=== PATIENT | female | born 1975 | race Caucasian/White ===

== ENCOUNTER 2021-08-24 11:45 | Emergency (ER) | payer MEDICAID ==
[~2021-08-24] VITALS: Ht 167 cm; Wt 54.0 kg
--- NOTE | 2021-08-24 12:13 | ED Upper Extremity ---
General Stated Complaint: R ELBOW PAIN, NUMBNESS IN FINGERS Source: patient Exam Limitations: no limitations History of Present Illness Date Seen by Provider: August 24, 2021 Time Seen by Provider: 12:10 Initial Comments To Er by PORandolph with c/o right shoulder pain and right elbow pain. She fell last night from a height of about 3 feet going down her steps. Has intermittent numbness in all of her fingers on the right hand. Did not hit her head, no other injuries. Onset: just prior to arrival Severity: moderate Pain/Injury Location: right shoulder, right elbow Method of Injury: fell Modifying Factors: Worse With Movement Allergies and Home Medications Patient Home Medication List Home Medication List Reviewed: Yes Review of Systems Constitutional: see HPI EENTM: see HPI Respiratory: no symptoms reported Cardiovascular: no symptoms reported Genitourinary: no symptoms reported Musculoskeletal: see HPI Skin: no symptoms reported Psychiatric/Neurological: No Symptoms Reported Physical Exam Vital Signs Vital Signs - First Documented 08/24/21 12:04 Temp 36.7 Pulse 72 Resp 18 B/P (MAP) 130/82 (98) Pulse Ox 97 Capillary Refill : Height, Weight, BMI Height: '" Weight: lbs. oz. kg; BMI Method: General Appearance: WD/WN, no apparent distress, thin HEENT: PERRL/EOMI, normal ENT inspection Neck: non-tender, full range of motion Respiratory: no respiratory distress, no accessory muscle use Shoulder: limited ROM, pain (abrasions, bruise superiorright shoulder over the AC joint. Small bruising over posterior right humerus and right scapula) Elbow/Forearm: Right (8cm circular bruise dorsal aspect right forearm over olecranon provess of ulna. ) Wrist: Yes normal inspection, Yes non-tender Hand: normal inspection, non-tender Neurologic/Psychiatric: alert, normal mood/affect, oriented x 3 Skin: normal color, warm/dry Progress/Results/Core Measures Results/Orders My Orders Orders - RACHEL REYNAGA APRN Shoulder, Right, 3 Views (08/24/21 12:09) Elbow, Right, 3 Views (08/24/21 12:09) Vital Signs/I&O 08/24/21 12:04 Temp 36.7 Pulse 72 Resp 18 B/P (MAP) 130/82 (98) Pulse Ox 97 Departure Impression Primary Impression: Contusion of elbow Additional Impression: Contusion of shoulder Disposition: HOME, SELF-CARE Condition: Stable Departure-Patient Inst. Decision time for Depature: 12:14 Referrals: NO,LOCAL PHYSICIAN (PCP/Family) Primary Care Physician Patient Instructions: Contusion (DC) Add. Discharge Instructions: . Ice packs to the area. Return to Er for any concerns. Follow up with your doctor later this week for recheck and further imaging if you have ongoing pain. Work/School Note: Work Release Form Date Seen in the Emergency Department: August 24, 2021 Return to Work: August 25, 2021 Images Extremities-Upper 1 - 2 - 3 - RACHEL REYNAGA APRN August 24, 2021 12:13
--- NOTE | 2021-08-24 12:47 | Diagnostic Imaging Report ---
Right shoulder at 12:32. Indication: Injury, shoulder pain. 3 views were obtained. There are no prior studies available for comparison. There is no fracture, dislocation or acute bony abnormality evident. There is mild degenerative disease of the glenohumeral and acromioclavicular joints. The soft tissues are unremarkable. Impression: There is no evidence for an acute bony abnormality. Dictated by: Dictated on workstation # [id number]
[2021-08-24 12:48] VITALS: BP 130/82
--- NOTE | 2021-08-24 12:50 | Diagnostic Imaging Report ---
INDICATION: Bruising and pain status post fall. Numbness . COMPARISON: None. FINDINGS: 3 views of the right elbow show no fractures, dislocations, or other acute bony abnormalities identified. Joint spaces are well maintained throughout. The soft tissues appear unremarkable. No radiopaque foreign bodies are identified. IMPRESSION: No acute fractures or dislocations of the right elbow. Dictated by: Dictated on workstation # [id number]
== END 2021-08-24 12:48 | disposition home or self-care (01) ==
LOC: ER 11:48
DX: S50.01XA Contusion of right elbow, initial encounter (principal); S40.011A Contusion of right shoulder, initial encounter; W10.9XXA Fall (on) (from) unspecified stairs and steps, initial encounter
CPT/HCPCS: 73030; 73080

== ENCOUNTER 2021-11-24 13:26 | Emergency (ER) | payer MEDICAID ==
[~2021-11-24] VITALS: Ht 167.7 cm; Wt 56.6 kg
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
[2021-11-24 13:58] LABS: BASOPHILS % (AUTO) 0 % (0-10); EOSINOPHILS % (AUTO) 0 % (0-10); HEMATOCRIT 42 % (35-52); HEMOGLOBIN 14.9 g/dL (11.5-16.0); LYMPHOCYTES # (AUTO) 2.1 10^3/uL (1.0-4.0); LYMPHOCYTES % (AUTO) 28 % (12-44); MEAN CORPUSCULAR HEMOGLOBIN 33 pg (25-34); MEAN CORPUSCULAR HGB CONC 35 g/dL (32-36); MEAN CORPUSCULAR VOLUME 93 fL (80-99); MONOCYTES # (AUTO) 0.8 10^3/uL (0.0-1.0); MONOCYTES % (AUTO) 11 % (0-12); NEUTROPHILS # (AUTO) 4.6 10^3/uL (1.8-7.8); NEUTROPHILS % (AUTO) 60 % (42-75); PLATELET COUNT 237 10^3/uL (130-400); WHITE BLOOD COUNT 7.6 10^3/uL (4.3-11.0)
[2021-11-24] MEDS ORDERED: IOHEXOL 350 MG/ML 100 ML (OMNIPAQUE 350) VIAL IV ONE (14:00)
[2021-11-24] MEDS ORDERED: HOLD METFORMIN - RECEIVED CONTRAST 20 ML VIAL IV SCH (14:00)
[2021-11-24] MEDS ORDERED: CATHETER FLUSH 10 ML SYR IV PRN (14:00)
[2021-11-24] MEDS ORDERED: NS 100 ML (IVPB) BAG IV ONE (14:00)
[2021-11-24 14:10] LABS: ALBUMIN 5.1 GM/DL (3.2-4.5); CHLORIDE 100 MMOL/L (98-107); POTASSIUM 3.8 MMOL/L (3.6-5.0); SODIUM 136 MMOL/L (135-145)
[2021-11-24 14:12] LABS: CLARITY,URINE CLEAR; COLOR,URINE YELLOW
[2021-11-24 14:12] LABS: GLUCOSE 83 MG/DL (70-105)
[2021-11-24 14:13] LABS: BILIRUBIN,URINE NEGATIVE (NEGATIVE); GLUCOSE, URINE (UA) NEGATIVE (NEGATIVE); KETONES,URINE NEGATIVE (NEGATIVE); LEUKOCYTE ESTERASE ,URINE NEGATIVE (NEGATIVE); NITRITE,URINE NEGATIVE (NEGATIVE); PH,URINE 5.5 (5-9); PROTEIN,URINE NEGATIVE (NEGATIVE)
[2021-11-24 14:13] LABS: TOTAL PROTEIN 8.3 GM/DL (6.4-8.2)
[2021-11-24 14:14] LABS: BILIRUBIN,TOTAL 0.9 MG/DL (0.1-1.0); CARBON DIOXIDE 23 MMOL/L (21-32)
[2021-11-24 14:16] LABS: ALKALINE PHOSPHATASE 60 U/L (40-136); CREATININE SERUM 1.01 MG/DL (0.60-1.30); GFR ESTIMATED 70
[2021-11-24 14:17] LABS: ACETAMINOPHEN < 10 UG/ML (10-30)
[2021-11-24 14:18] LABS: BUN/CREATININE RATIO 13
[2021-11-24 14:19] LABS: ALANINE AMINOTRANSFERASE 33 U/L (0-55); SALICYLATE < 5.0 MG/DL (5.0-20.0)
[2021-11-24 14:20] LABS: BACTERIA,URINE NEGATIVE /HPF; RBC,URINE RARE /HPF; SQUAMOUS EPITHELIAL CELL,UR 0-2 /HPF
[2021-11-24 14:31] LABS: AMPHETAMINE SCREEN, URINE POSITIVE (NEGATIVE); BARBITURATE SCREEN URINE NEGATIVE (NEGATIVE); BENZODIAZEPINES SCREEN URINE NEGATIVE (NEGATIVE); CANNABINOID SCREEN, URINE POSITIVE (NEGATIVE); COCAINE SCREEN URINE POSITIVE (NEGATIVE); METHADONE STAT NEGATIVE (NEGATIVE); OPIATE SCREEN URINE NEGATIVE (NEGATIVE); OXYCODONE STAT NEGATIVE (NEGATIVE); PROPOXYPHENE STAT NEGATIVE (NEGATIVE); TRICYCLIC ANTIDEPRESSANTS SCRE NEGATIVE (NEGATIVE)
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
[2021-11-24 15:43] VITALS: BP 116/92
== END 2021-11-24 15:43 | disposition home or self-care (01) ==
LOC: EDUNIT# 13:28 → ER 13:29
DX: S06.9X9A Unspecified intracranial injury with loss of consciousness of unspecified duration, initial encounter (principal); S20.20XA Contusion of thorax, unspecified, initial encounter; S30.0XXA Contusion of lower back and pelvis, initial encounter; S80.02XA Contusion of left knee, initial encounter; S80.01XA Contusion of right knee, initial encounter; R44.1 Visual hallucinations; M54.2 Cervicalgia; Z28.310 Unvaccinated for COVID-19; Y04.8XXA Assault by other bodily force, initial encounter
CPT/HCPCS: 70450; 70498; 80053; 80306; 81000; 84703; 85025; 93005; 99284; G0480 ×3; 36415; 80320; 80329